=== PATIENT | male | born 1935 | race Caucasian/White ===

== ENCOUNTER 2016-08-08 23:32 | Emergency (ER) | payer MEDICARE, BC ==
[~2016-08-08 23:32] MED LIST: ACET500CAP PO; ASAB PO; BETAP120 PO; CARTIA XT180 MG/24 PO; CORDARONE PO; DILT-XR180 MG PO; DIOVAN HCT PO; FLORASTOR250 MG PO; L40 PO; LOP25 PO; LOP50 PO; MAX25 PO; METHOC500B PO; MULTI-VIT HP OR; PACERONE400 MG PO; PRESERVISION A1 EAC1 PO; PRESERVISION PO; TAMBO50 PO; TAMBOCOR PO; TAMBOCOR150 MG PO; XARELTO20 MG PO; ZOCOR40 PO; ZYRTEC-D ALG PO
[2016-08-09 00:44] LABS: BASOPHILS 0.2 %; BASOPHILS ABSOLUTE 0.02 10/3/uL (0.0-0.16); EOSINOPHILS 2.2 %; EOSINOPHILS ABSOLUTE 0.18 10/3/uL (0.0-0.53); ER CBC TAT 0 Hrs 03 MinsNP; HEMATOCRIT 42.3 % (40.0-51.0); HEMOGLOBIN 14.2 g/dL (13.6-17.8); IMMATURE GRANULOCYTES 0.4 %; IMMATURE GRANULOCYTES ABSOLUTE 0.03 10/3/uL (0.0-0.11); LYMPHOCYTES 17.4 %; LYMPHOCYTES ABSOLUTE 1.43 10/3/uL (0.67-4.30); MANUAL DIFF NO %; MEAN CORPUS HGB CONC 33.6 g/dL (32.0-36.0); MEAN CORPUSCULAR VOLUME 95.3 fL (80-100); MEAN PLATELET VOLUME 9.4 fL (9.2-13.0); MONOCYTES 5.7 %; MONOCYTES ABSOLUTE 0.47 10/3/uL (0.21-1.20); NEUTROPHILS 74.1 %; PLATELET COUNT 158 10/3/uL (150-400); RBC DISTRIBUTION WIDTH 13.7 % (12.0-16.0); RED CELL COUNT 4.44 10/6/uL (4.7-6.1); WHITE BLOOD CELLS 8.2 10/3/uL (4.5-10.5)
[2016-08-09 00:52] LABS: PARTIAL THROMBO TIME 26.7 SEC (22.5-37.2)
[2016-08-09 00:53] LABS: INTERNATIONAL NORMAL RATI 1.6 UNITS (-)
[2016-08-09 00:56] LABS: BUN (BLOOD UREA NITROGEN) 23 MG/DL (6-23); CALCIUM, SERUM 9.1 MG/DL (8.5-10.4); CHLORIDE, SERUM 101 MMOL/L (96-112); CO2 (CARBON DIOXIDE) 25 MMOL/L (24-34); CREATININE 1.29 MG/DL (0.70-1.30); GFR AFRICAN AMERICAN 59 ML/MIN (>=60); GFR NON AFRICAN AMERICAN 51 ML/MIN (>=60); GLUCOSE, SERUM 89 MG/DL (60-99); POTASSIUM, SERUM 3.4 MMOL/L (3.5-5.3); SODIUM, SERUM 139 MMOL/L (135-148)
== END 2016-08-09 01:35 | disposition home or self-care (01) ==
LOC: ER 23:32
PROVIDERS: Nurse Practitioner Acute Care
PROC: 0HQ0XZZ Repair Scalp Skin, External Approach (ICD-10-PCS; principal; 2016-08-08)
DX: S01.01XA Laceration without foreign body of scalp, initial encounter (principal); I48.91 Unspecified atrial fibrillation; Z79.82 Long term (current) use of aspirin; Z79.899 Other long term (current) drug therapy
CPT/HCPCS: 70450; 80048; 85025; 85610; 85730; 90471; 90714; 99284